=== PATIENT | male | born 1950 ===

== ENCOUNTER 2017-08-18 12:58 | Inpatient (IN) | payer MEDICARE, MEDICAID ==
[~2017-08-18] VITALS: Ht 188 cm; Wt 116.6 kg
[2017-08-18] MEDS ORDERED: LACTATED RINGERS 1,000 ML IV SCH (13:21)
[2017-08-18 13:49] VITALS: BP 115/75
[2017-08-18] MEDS ORDERED: METF750T2 PO (14:10)
[2017-08-18] MEDS ORDERED: SPIR25TA3 PO (14:10)
[2017-08-18] MEDS ORDERED: NAPR-850 PO (14:10)
[2017-08-18] MEDS ORDERED: LISI30TA4 PO (14:10)
[2017-08-18 14:51] LABS: ALBUMIN 2.9 g/dL (3.4-5.0); ANION GAP 10 mmol/L (5-15); CALCIUM 8.7 mg/dL (8.5-10.1); CHLORIDE 97 mmol/L (98-107)
[2017-08-18 14:55] LABS: ALANINE AMINOTRANSFERASE 22 U/L (12-78); ALKALINE PHOSPHATASE 127 U/L (45-117); BILIRUBIN,TOTAL 0.6 mg/dL (0.2-1.0); CREATININE 1.11 mg/dL (0.7-1.3); TOTAL PROTEIN 7.6 g/dL (6.4-8.2)
[2017-08-18] MEDS ORDERED: FENTANYL PF 250 MCG/5ML ONE (15:11)
[2017-08-18] MEDS ORDERED: MIDAZOLAM 1 MG/ML, 2ML ONE (15:11)
[2017-08-18] MEDS ORDERED: ROCURONIUM 10MG/ML,5ML ONE (15:13)
[2017-08-18] MEDS ORDERED: DEXAMETHASONE 4 MG/ML, 1ML ONE (15:13)
[2017-08-18] MEDS ORDERED: PROPOFOL 10 MG/ML, 20ML ONE (15:13)
[2017-08-18] MEDS ORDERED: CEFAZOLIN 1,000 MG ONE ×3 (15:43)
[2017-08-18] MEDS ORDERED: BACITRACIN 50,000 UNIT IRRIG ONE (15:46)
[2017-08-18] MEDS ORDERED: VANCOMYCIN 1,000 MG ONE (15:49)
[2017-08-18] MEDS ORDERED: OXYcodone 5 MG/5 ML ORAL.SOL UDC PO PRN (16:00)
[2017-08-18] MEDS ORDERED: PROMETHAZINE 25 MG/ML, 1ML IV PRN (16:00)
[2017-08-18] MEDS ORDERED: MEPERIDINE/PF 25MG/0.5ML IVPush PRN (16:00)
[2017-08-18] MEDS ORDERED: LORazepam 2 MG/ML, 1ML IVPush PRN (16:00)
[2017-08-18] MEDS ORDERED: hydrALAzine 20 MG/ML, 1ML IV PRN (16:00)
[2017-08-18] MEDS ORDERED: LABETALOL 5MG/ML, 20ML IV PRN (16:00)
[2017-08-18] MEDS ORDERED: FENTANYL PF 100 MCG/2ML ONE (16:46)
[2017-08-18] MEDS ORDERED: MORPHINE SULFATE 4 MG/ML, 1ML ONE ×4 (16:47→17:58)
[2017-08-18] MEDS ORDERED: OXYcodone 5 MG/5 ML ORAL.SOL UDC ONE (16:47)
[2017-08-18] MEDS: FENTANYL PF 100 MCG/2ML IV PRN ×2 (16:55→17:05)
[2017-08-18] MEDS: morphine SULFATE 10 MG/ML, 1ML IV PRN ×7 (17:00→18:00)
[2017-08-18] MEDS ORDERED: CEFTAROLINE 600 MG in SODIUM CHLORIDE 0.9% 100 ML IV SCH (17:30)
[2017-08-18] MEDS ORDERED: BACITRACIN 50,000 UNIT ONE (17:36)
[2017-08-18] MEDS ORDERED: PHARMACY MAY ADJ FOR RENAL FX MC PRN (18:00)
[2017-08-18] MEDS ORDERED: DIPHENHYDRAMINE 25 MG CAPSULE PO PRN ×2 (18:00→21:00)
[2017-08-18] MEDS ORDERED: SENNA/DOCUSATE TABLET PO PRN ×2 (18:00→19:00)
[2017-08-18] MEDS ORDERED: OXYcodone/APAP 5/325MG TABLET PO PRN (18:00)
[2017-08-18] MEDS ORDERED: PROMETHAZINE 25 MG/ML, 1ML IM PRN ×2 (18:00→19:00)
[2017-08-18] MEDS ORDERED: morphine SULFATE 10 MG/ML, 1ML IV PRN ×2 (18:00→19:00)
[2017-08-18] MEDS ORDERED: ACETAMINOPHEN 325 MG TABLET PO PRN ×2 (18:00→19:00)
[2017-08-18] MEDS ORDERED: ONDANSETRON 2MG/ML, 2ML IV PRN ×2 (18:00→19:00)
[2017-08-18 18:30] VITALS: BP 133/75
[2017-08-18] MEDS ORDERED: CEFAZOLIN PMX 2GM/50ML 50 ML IVPB SCH (19:00)
[2017-08-18] MEDS ORDERED: SODIUM CHLORIDE FLUSH 10ML SYR IVF SCH (21:00)
[2017-08-18] MEDS ORDERED: DOCUSATE 100 MG CAPSULE PO SCH (21:00)
[2017-08-18] MEDS: OXYcodone/APAP 5/325MG TABLET PO PRN (21:07)
[2017-08-18] MEDS: SODIUM CHLORIDE FLUSH 10ML SYR IVF SCH (21:07)
[2017-08-18] MEDS: DOCUSATE 100 MG CAPSULE PO SCH (21:07)
[2017-08-18] MEDS: CEFTAROLINE 600 MG in SODIUM CHLORIDE 0.9% 100 ML IV SCH (23:44)
[2017-08-19 00:15] VITALS: BP 163/77
[2017-08-19] MEDS: OXYcodone/APAP 5/325MG TABLET PO PRN ×6 (02:53→23:11)
[2017-08-19 07:24] VITALS: BP 131/77
[2017-08-19] MEDS: DOCUSATE 100 MG CAPSULE PO SCH ×2 (07:47→19:29)
[2017-08-19] MEDS: SODIUM CHLORIDE FLUSH 10ML SYR IVF SCH ×2 (07:48→15:08)
[2017-08-19] MEDS: metFORMIN 500 MG TABLET PO SCH (11:26)
[2017-08-19] MEDS: SPIRONOLACTONE 25 MG TABLET PO SCH (11:26)
[2017-08-19] MEDS: LISINOPRIL 10 MG TABLET PO SCH (11:26)
[2017-08-19] MEDS: NAPROXEN 500 MG TABLET PO SCH (11:26)
[2017-08-19] MEDS: CEFTAROLINE 600 MG in SODIUM CHLORIDE 0.9% 100 ML IV SCH ×2 (11:39→23:11)
[2017-08-19 15:00] VITALS: BP 115/63
[2017-08-19 18:42] VITALS: BP 92/60
[2017-08-20 00:30] VITALS: BP 96/61
[2017-08-20] MEDS: OXYcodone/APAP 5/325MG TABLET PO PRN ×5 (03:26→20:21)
[2017-08-20 05:23] LABS: BASOPHILS # (AUTO) 0.02 x10^3/uL (0-0.1); BASOPHILS % (AUTO) 0 % (0-1); EOSINOPHILS # (AUTO) 0.49 x10^3/uL (0-0.4); EOSINOPHILS % (AUTO) 5 % (1-7); LYMPHOCYTES # (AUTO) 2.13 x10^3/uL (1-3.4); LYMPHOCYTES % (AUTO) 22 % (22-44); MD NO; MEAN CORPUSCULAR HEMOGLOBIN 28.9 pg (27.5-34.5); MEAN CORPUSCULAR HGB CONC 32.9 g/dL (33.2-36.2); MEAN CORPUSCULAR VOLUME 87.7 fL (81-97); MEAN PLATELET VOLUME 6.8 fL (7.4-10.4); MONOCYTES # (AUTO) 0.99 x10^3/uL (0.2-0.8); MONOCYTES % (AUTO) 10 % (2-9); NEUTROPHILS # (AUTO) 6.04 x10^3/uL (1.8-6.8); NEUTROPHILS % (AUTO) 63 % (42-75); PLATELET COUNT 424 x10^3/uL (130-400); RED BLOOD COUNT 3.84 x10^6/uL (4.38-5.82); RED CELL DISTRIBUTION WIDTH 14.2 % (9.4-14.8)
[2017-08-20 05:43] LABS: CHLORIDE 97 mmol/L (98-107)
[2017-08-20 06:04] LABS: HCT (SEDRATE) 33.7 % (39.2-51.8)
[2017-08-20 06:06] LABS: ALANINE AMINOTRANSFERASE 18 U/L (12-78); ALBUMIN 2.6 g/dL (3.4-5.0); ALKALINE PHOSPHATASE 107 U/L (45-117); ANION GAP 8 mmol/L (5-15); BILIRUBIN,TOTAL 0.4 mg/dL (0.2-1.0); CALCIUM 9.1 mg/dL (8.5-10.1); TOTAL PROTEIN 6.8 g/dL (6.4-8.2)
[2017-08-20 06:24] LABS: HEMOGLOBIN A1C 7.7 % (4.2-6.3)
[2017-08-20 07:00] VITALS: BP 112/65
[2017-08-20] MEDS: DOCUSATE 100 MG CAPSULE PO SCH ×2 (07:56→20:21)
[2017-08-20] MEDS: NAPROXEN 500 MG TABLET PO SCH (07:56)
[2017-08-20] MEDS: metFORMIN 500 MG TABLET PO SCH (07:57)
[2017-08-20] MEDS: SODIUM CHLORIDE FLUSH 10ML SYR IVF SCH ×2 (07:57→20:23)
[2017-08-20] MEDS: LISINOPRIL 10 MG TABLET PO SCH (07:57)
[2017-08-20] MEDS: SPIRONOLACTONE 25 MG TABLET PO SCH (07:57)
[2017-08-20] MEDS: CEFTAROLINE 600 MG in SODIUM CHLORIDE 0.9% 100 ML IV SCH ×2 (12:08→23:50)
[2017-08-20 13:25] VITALS: BP 124/74
[2017-08-20 19:42] VITALS: BP 119/74
[2017-08-21] MEDS: OXYcodone/APAP 5/325MG TABLET PO PRN ×6 (00:26→20:25)
[2017-08-21 01:50] VITALS: BP 115/62
[2017-08-21 07:33] VITALS: BP 122/75
[2017-08-21] MEDS: metFORMIN 500 MG TABLET PO SCH (08:02)
[2017-08-21] MEDS: DOCUSATE 100 MG CAPSULE PO SCH ×2 (08:02→20:25)
[2017-08-21] MEDS: NAPROXEN 500 MG TABLET PO SCH (08:03)
[2017-08-21] MEDS: SODIUM CHLORIDE FLUSH 10ML SYR IVF SCH ×2 (08:03→20:25)
[2017-08-21] MEDS: LISINOPRIL 10 MG TABLET PO SCH (08:03)
[2017-08-21] MEDS: SPIRONOLACTONE 25 MG TABLET PO SCH (08:03)
[2017-08-21] MEDS: CEFTAROLINE 600 MG in SODIUM CHLORIDE 0.9% 100 ML IV SCH ×2 (11:27→23:42)
[2017-08-21 15:09] VITALS: BP 130/86
[2017-08-21 18:49] VITALS: BP 134/66
[2017-08-22] MEDS: OXYcodone/APAP 5/325MG TABLET PO PRN ×6 (00:31→21:16)
[2017-08-22 02:03] VITALS: BP 118/66
[2017-08-22 07:30] VITALS: BP 131/74
[2017-08-22] MEDS: SPIRONOLACTONE 25 MG TABLET PO SCH (07:49)
[2017-08-22] MEDS: NAPROXEN 500 MG TABLET PO SCH (07:49)
[2017-08-22] MEDS: metFORMIN 500 MG TABLET PO SCH (07:49)
[2017-08-22] MEDS: DOCUSATE 100 MG CAPSULE PO SCH ×2 (07:49→21:16)
[2017-08-22] MEDS: LISINOPRIL 10 MG TABLET PO SCH (07:49)
[2017-08-22] MEDS: SODIUM CHLORIDE FLUSH 10ML SYR IVF SCH ×2 (07:50→21:16)
[2017-08-22] MEDS ORDERED: CEFAZOLIN 2 MG in SODIUM CHLORIDE 0.9% 50 ML IV SCH (10:00)
[2017-08-22] MEDS ORDERED: LIDOCAINE-MPF 1%, 5ML ONE (12:47)
[2017-08-22 13:35] VITALS: BP 120/76
[2017-08-22 19:34] VITALS: BP 107/70
[2017-08-22] MEDS: CEFAZOLIN PMX 2GM/50ML 50 ML IVPB SCH (21:30)
[2017-08-23] MEDS: OXYcodone/APAP 5/325MG TABLET PO PRN ×6 (01:19→23:02)
[2017-08-23 01:42] VITALS: BP 101/63
[2017-08-23] MEDS: CEFAZOLIN PMX 2GM/50ML 50 ML IVPB SCH ×2 (05:50→13:48)
[2017-08-23] MEDS: SODIUM CHLORIDE FLUSH 10ML SYR IVF SCH ×2 (07:52→21:02)
[2017-08-23] MEDS: DOCUSATE 100 MG CAPSULE PO SCH ×2 (07:52→21:02)
[2017-08-23] MEDS: NAPROXEN 500 MG TABLET PO SCH (07:52)
[2017-08-23] MEDS: SPIRONOLACTONE 25 MG TABLET PO SCH (07:52)
[2017-08-23] MEDS: metFORMIN 500 MG TABLET PO SCH (07:52)
[2017-08-23] MEDS: LISINOPRIL 10 MG TABLET PO SCH (07:53)
[2017-08-23 07:55] VITALS: BP 110/71
[2017-08-23] MEDS: ERTAPENEM 1 GM in SODIUM CHLORIDE 0.9% 50 ML IV SCH (16:08)
[2017-08-23 16:13] VITALS: BP 124/73
[2017-08-23 20:39] VITALS: BP 125/74
[2017-08-24 03:16] VITALS: BP 117/72
[2017-08-24] MEDS: OXYcodone/APAP 5/325MG TABLET PO PRN ×3 (04:24→14:04)
[2017-08-24] MEDS: SPIRONOLACTONE 25 MG TABLET PO SCH (07:55)
[2017-08-24] MEDS: metFORMIN 500 MG TABLET PO SCH (07:56)
[2017-08-24] MEDS: DOCUSATE 100 MG CAPSULE PO SCH (07:56)
[2017-08-24] MEDS: NAPROXEN 500 MG TABLET PO SCH (07:56)
[2017-08-24] MEDS: LISINOPRIL 10 MG TABLET PO SCH (07:58)
[2017-08-24] MEDS: SODIUM CHLORIDE FLUSH 10ML SYR IVF SCH (07:58)
[2017-08-24 07:59] VITALS: BP 121/71
[2017-08-24 13:09] VITALS: BP 146/73
[2017-08-24] MEDS: ERTAPENEM 1 GM in SODIUM CHLORIDE 0.9% 50 ML IV SCH (16:14)
[2017-08-24 16:42] VITALS: BP 157/88
== END 2017-08-24 17:21 | disposition home or self-care (01) | DRG 856 ==
LOC: ORIP 12:58 → EDSTATUS 16:00 → 4NOR 18:47
PROVIDERS: ADMIT Orthopaedic Surgery Orthopaedic Surgery of the Spine; ATTEND Orthopaedic Surgery Orthopaedic Surgery of the Spine
PROC: 0JB70ZZ Excision of Back Subcutaneous Tissue and Fascia, Open Approach (ICD-10-PCS; principal; 2017-08-18 16:00)
PROC: 02HV33Z Insertion of Infusion Device into Superior Vena Cava, Percutaneous Approach (ICD-10-PCS; 2017-08-22)
PROC: B548ZZA Ultrasonography of Superior Vena Cava, Guidance (ICD-10-PCS; 2017-08-22)
DX: T81.4XXA Infection following a procedure, initial encounter (principal); E43 Unspecified severe protein-calorie malnutrition; T81.30XA Disruption of wound, unspecified, initial encounter; E11.9 Type 2 diabetes mellitus without complications; M54.5 Low back pain; M48.062 Spinal stenosis, lumbar region with neurogenic claudication; I10 Essential (primary) hypertension; Z83.3 Family history of diabetes mellitus; Z87.891 Personal history of nicotine dependence
CPT/HCPCS: 36415; 36569; 76937; 77001; 80053; 82962; 83036; 85025; 85651; 86140; 87040; 87070; 87075; 87077; 87147; 87176; 87186; 87205; 93005; J0690; J0712; J1100; J1335; J2250; J2704; J3010; J3370; C1751; J2270; J7120